=== PATIENT | male | born 1985 | race Two or more races ===

== ENCOUNTER 2020-03-26 09:10 | Day surgery (SDC) | payer BC, OTHER ==
[~2020-03-26 09:10] MED LIST: Lactated Ringers 1,000 ML IV SCH; Sodium Chloride 0.9% 10 ML SDV IV PRN; Sodium Chloride 0.9% 10 ML Syringe FLUSH PRN; Sodium Chloride 0.9% 2.5 ML Syringe FLUSH PRN; ceFAZolin 2 GM in Premix Bag 1 BAG IV ONE
--- NOTE | 2020-03-26 09:53 | PCM.PREANE ---
Preanesthetic Assessment - Anesthesia/Transfusion/Family Hx Anesthesia History: Prior Anesthesia Without Reaction Family History of Anesthesia Reaction: No Transfusion History: No Prior Transfusion(s) - Review of Systems General: No Symptoms Pulmonary: No Symptoms Cardiovascular: No Symptoms Gastrointestinal: No Symptoms Neurological: No Symptoms Other: Reports: None - Physical Assessment Height: 5 ft 8 in Weight: 82.1 kg ASA Class: 2 Mental Status: Alert & Oriented x3 Airway Class: Mallampati = 2 Dentition: Reports: Normal Dentition Thyro-Mental Finger Breadths: 3 Mouth Opening Finger Breadths: 3 ROM/Head Extension: Full Lungs: Clear to Auscultation, Normal Respiratory Effort Cardiovascular: Regular Rate, Regular Rhythm - Allergies Allergies/Adverse Reactions: Allergies Allergy/AdvReac Type Severity Reaction Status Date / Time No Known Allergies Allergy Verified 03/23/20 12:35 - Blood Blood Available: No - Anesthesia Plan Pre-Op Medication Ordered: None - Acknowledgements Anesthesia Type Planned: General Anesthesia Pt an Appropriate Candidate for the Planned Anesthesia: Yes Alternatives and Risks of Anesthesia Discussed w Pt/Guardian: Yes Pt/Guardian Understands and Agrees with Anesthesia Plan: Yes PreAnesthesia Questionnaire HEENT History: Reports: Other (See Below) Other HEENT History: wears glasses Cardiovascular History: Reports: Hypertension Other Cardiovascular History: has not taken medications for 2 years- BP "stabilized" after loosing 100 pound last year through dieting Gastrointestinal History: Reports: GERD Other Gastrointestinal History: has taken Nexium in the past- not currently Musculoskeletal History: Reports: Back Pain, Chronic Other Musculoskeletal History: hx of "pinched nerve" in back Neurological History: Reports: Concussion - Past Surgical History Head Surgeries/Procedures: Reports: None HEENT Surgical History: Reports: Tonsillectomy GI Surgical History: Reports: Hernia, Inguinal (left at age 10) Other GI Surgeries/Procedures: hx of Left Inguinal hernia repair as a child - SUBSTANCE USE Smoking Status *Q: Current Every Day Smoker (5-6 cigarettes per day at present) Tobacco Use Within Last Twelve Months: Cigarettes Recreational Drug Use History: No - HOME MEDS Home Medications: Home Meds Gabapentin [Neurontin] 300 mg PO ASDIRECTED PRN 03/23/20 [History] - CURRENT (IN HOUSE) MEDS Current Meds: Current Medications Lactated Ringer's (Ringers, Lactated) 1,000 mls @ 125 mls/hr IV ASDIRECTED NEGRO Sodium Chloride (Saline Flush) 10 ml FLUSH ASDIRECTED PRN PRN Reason: Keep Vein Open Sodium Chloride (Saline Flush) 2.5 ml FLUSH ASDIRECTED PRN PRN Reason: Keep Vein Open Sodium Chloride (Normal Saline) 10 ml IV ASDIRECTED PRN PRN Reason: IV Use Discontinued Medications Cefazolin Sodium/Dextrose 2 gm (/ Premix) 50 mls @ 100 mls/hr IV ONETIME ONE Stop: 03/23/20 11:15
[2020-03-26] MEDS ORDERED: Bupivacaine 0.5% 30 ML SDV ONE (13:36)
[2020-03-26] MEDS ORDERED: Ondansetron 4 MG/2 ML SDV ONE (14:04)
[2020-03-26] MEDS ORDERED: fentaNYL 250 MCG/5 ML SDV ONE (14:04)
[2020-03-26] MEDS ORDERED: Propofol 200 MG/20 ML SDV ONE ×2 (14:04→15:04)
[2020-03-26] MEDS ORDERED: Lidocaine 2% 5 ML SDV ONE (14:04)
[2020-03-26] MEDS ORDERED: Midazolam 1 MG/ML 2 ML SDV ONE (14:04)
[2020-03-26] MEDS ORDERED: Sodium Chloride 0.9% 20 ML ONE (14:15)
[2020-03-26] MEDS ORDERED: ceFAZolin 1 GM Vial ONE (14:15)
[2020-03-26] MEDS ORDERED: Glycopyrrolate 0.2 MG/ML SDV ONE ×2 (14:17→14:19)
[2020-03-26] MEDS ORDERED: ePHEDrine 50 MG/ML SDV ONE (15:20)
[2020-03-26] MEDS ORDERED: fentaNYL 100 MCG/2 ML SDV ONE ×2 (15:20→16:14)
[2020-03-26] MEDS ORDERED: Acetaminophen/oxyCODONE 325-5 MG Tab PO PRN (15:50)
--- NOTE | 2020-03-26 15:50 | PCM.OPNOTE ---
- General Post-Op/Procedure Note Date of Surgery/Procedure: 03/26/20 Operative Procedure(s): Right inguinal hernia repair Findings: Indirect inguinal hernia repair with mesh Pre Op Diagnosis: Right inguinal hernia Post-Op Diagnosis: right indirect inguinal hernia Anesthesia Technique: General LMA Primary Surgeon: Danni Dill Fluid Replacement, Intraop: 1,200 EBL in mLs: 10 Condition: Good
[2020-03-26] MEDS ORDERED: Ketorolac 30 MG/ML SDV IVPUSH ONE (15:51)
[2020-03-26] MEDS ORDERED: fentaNYL 50 MCG/ML SDV IVPUSH ONE (16:32)
[2020-03-26] MEDS ORDERED: Acetaminophen 1,000 MG in Premix Bag 1 BAG IV ONE (16:40)
--- NOTE | 2020-03-26 16:50 | PCM.POSTAN ---
POST ANESTHESIA ASSESSMENT - MENTAL STATUS Mental Status: Alert, Oriented - VITAL SIGNS Vital Signs: Last Vital Signs Temp 36.6 C 03/26/20 15:50 Pulse 57 L 03/26/20 16:45 Resp 16 03/26/20 16:45 BP 151/76 H 03/26/20 16:45 Pulse Ox 100 03/26/20 16:45 - RESPIRATORY Respiratory Status: Respiratory Rate WNL, Airway Patent, O2 Saturation Stable - CARDIOVASCULAR CV Status: Pulse Rate WNL, Blood Pressure Stable - GASTROINTESTINAL GI Status: No Symptoms - PAIN Pain Score: 5 - POST OP HYDRATION Hydration Status: Adequate & Stable - OBSERVATIONS Free Text/Narrative:: No anesthesia problems
--- NOTE | 2020-03-26 17:41 | PCM48HPAN ---
Post Anesthesia Note - EVALUATION WITHIN 48HRS OF ANESTHETIC Vital Signs in Normal Range: Yes Patient Participated in Evaluation: Yes Respiratory Function Stable: Yes Airway Patent: Yes Cardiovascular Function Stable: Yes Hydration Status Stable: Yes Pain Control Satisfactory: Yes Nausea and Vomiting Control Satisfactory: Yes Mental Status Recovered: Yes Vital Signs: Last Vital Signs Temp 36.6 C 03/26/20 15:50 Pulse 57 L 03/26/20 16:45 Resp 16 03/26/20 16:45 BP 151/76 H 03/26/20 16:45 Pulse Ox 100 03/26/20 16:45 - COMMENTS/OBSERVATIONS Free Text/Narrative:: No anesthesia complications or concerns noted.
--- NOTE | 2020-03-27 19:26 | OR ---
SURGEON: DANNI DILL MD DATE OF PROCEDURE: 03/26/2020 PREOPERATIVE DIAGNOSIS: Right inguinal hernia. POSTOPERATIVE DIAGNOSIS: Right indirect inguinal hernia. PROCEDURE PERFORMED: Right inguinal hernia repair with mesh. PRIMARY SURGEON: Danni Dill MD ANESTHESIA: General LMA. FLUIDS: 1200 mL of crystalloid. ESTIMATED BLOOD LOSS: 10 mL. FINDINGS: Right indirect inguinal hernia. Reducible. Nonrecurrent. COMPLICATIONS: None. INDICATIONS: The patient is a 34-year-old male who presents with a new right inguinal bulge. On physical exam, this was consistent with a right inguinal hernia. I explained the need for an inguinal hernia repair with mesh. After discussion of the risks and benefits, the patient verbalized understanding and wished to proceed. PROCEDURE IN DETAIL: The patient was brought into the OR and placed on the OR table in supine position. A time-out was completed verifying the patient's name, age, date of , allergies, and procedure to be performed. General LMA anesthesia was induced. The abdomen, groin and genitalia were prepped and draped in usual standard fashion. I anesthetized an area 2 fingerbreadths above the inguinal ligament with 0.5% Marcaine plain. Two fingerbreadths above the pubic tubercle, an oblique incision was made. Dissection was then carried down with cautery through Michel fascia, maintaining hemostasis. Once the external oblique was identified, it was incised along the length of its fibers using Metzenbaum scissors. I then extended the incision in both directions, opening up the external oblique down to the external ring. The external oblique was then grasped with hemostats on either side. The cord, cord structures, as well as the hernia sac were then freed up circumferentially and a Mickey drain was placed around it. The hernia sac was identified along the anterior medial portion of the cord structures. It was stripped down using gentle blunt dissection. Care was taken to protect the spermatic cord and vessels during this dissection. Metzenbaum scissors were then used to open the hernia sac and the hernia sac was explored. There were no intraabdominal structures within the sac. The hernia sac was then ligated at its base using a 3-0 Vicryl suture and transected. The sac was inspected for hemostasis and then retracted back into the internal ring. A small [id number] was then brought into the field. A small plug was placed through the opening in the internal ring and secured with an interrupted 0 Ethibond suture. The small mesh was then placed in the floor of the inguinal canal. It was sutured to the pubic tubercle medially, along the ilioinguinal ligament inferiorly, and along the conjoint tendon superiorly, making a slit for the cord and cord structures. I used interrupted 0 Ethibond sutures to do this. After the mesh was secured, I inspected my cord and the opening through the mesh was just enough to accept the tip of my finger and not strangulate the cord structures. A Valsalva maneuver was performed and the mesh appeared intact with no recurrence of the hernia. The area was irrigated with normal saline, which was then suctioned out. Hemostasis appeared to be achieved. I then closed the external oblique over the roof of the inguinal canal using a running 3-0 Vicryl suture, taking care not to strangulate the cord and to recreate the external ring. I then closed the subcutaneous fat with a running layer of 3-0 Vicryl suture. The superficial subcutaneous fat was closed with interrupted 3-0 Vicryl suture. The skin was closed with running 4-0 Monocryl stitch. Steri-Strips and sterile dressings were applied. The patient tolerated the procedure well and was transferred to the PACU in stable condition. All counts were complete and correct at the end of the case. ANN LOAIZA /[id number]
== END 2020-03-26 17:40 | disposition home or self-care (01) ==
LOC: MW.SDS 09:10
PROVIDERS: ATTEND Surgery
DX: K40.90 Unilateral inguinal hernia, without obstruction or gangrene, not specified as recurrent (principal); I10 Essential (primary) hypertension; K21.9 Gastro-esophageal reflux disease without esophagitis; F17.210 Nicotine dependence, cigarettes, uncomplicated
CPT/HCPCS: 49505; 87635; A9270; C1781; J0131; J0690; J2001; J2250; J2405; J2704; J3010; J3490; J7120; 88302; U0002